=== PATIENT | female | born 1975 | race Caucasian/White ===

== ENCOUNTER → 2017-01-09 | Outpatient (CLI) | payer OTHER | LOC: WOUNDCARE 14:14 | PROVIDERS: ATTEND Surgery | DX: E11.622 Type 2 diabetes mellitus with other skin ulcer (principal); L97.212 Non-pressure chronic ulcer of right calf with fat layer exposed; I87.331 Chronic venous hypertension (idiopathic) with ulcer and inflammation of right lower extremity; D68.69 Other thrombophilia; T65.222A Toxic effect of tobacco cigarettes, intentional self-harm, initial encounter | CPT/HCPCS: 11042; 87070; 87075; 87077; 87205 ==

== ENCOUNTER → 2017-01-09 | Outpatient (CLI) | payer SELFPAY ==
[2017-01-11 07:47] LABS: HOMOCYSTEINE 12.5 umol/L (<=10.3)
== END ==
LOC: LAB 15:29
PROVIDERS: ATTEND Surgery
DX: L97.212 Non-pressure chronic ulcer of right calf with fat layer exposed (principal); I87.331 Chronic venous hypertension (idiopathic) with ulcer and inflammation of right lower extremity; E11.622 Type 2 diabetes mellitus with other skin ulcer; F17.210 Nicotine dependence, cigarettes, uncomplicated
CPT/HCPCS: 36415; 81240; 83090; 85240; 85307; 85610; 85705; 85730; 86146; 86147

== ENCOUNTER → 2017-01-15 | Outpatient (CLI) | payer SELFPAY | LOC: WOUNDCARE 12:54 | PROVIDERS: ATTEND Surgery | DX: E11.622 Type 2 diabetes mellitus with other skin ulcer (principal); L97.212 Non-pressure chronic ulcer of right calf with fat layer exposed; I87.331 Chronic venous hypertension (idiopathic) with ulcer and inflammation of right lower extremity; D68.69 Other thrombophilia; T65.222A Toxic effect of tobacco cigarettes, intentional self-harm, initial encounter | CPT/HCPCS: 99212 ==

== ENCOUNTER → 2017-01-23 | Outpatient (CLI) | payer SELFPAY | LOC: WOUNDCARE 14:06 | PROVIDERS: ATTEND Surgery | DX: E11.622 Type 2 diabetes mellitus with other skin ulcer (principal); I70.232 Atherosclerosis of native arteries of right leg with ulceration of calf; I87.331 Chronic venous hypertension (idiopathic) with ulcer and inflammation of right lower extremity; L97.212 Non-pressure chronic ulcer of right calf with fat layer exposed; D68.52 Prothrombin gene mutation; T65.222A Toxic effect of tobacco cigarettes, intentional self-harm, initial encounter | CPT/HCPCS: 11042 ==

== ENCOUNTER → 2017-01-30 | Outpatient (CLI) | payer SELFPAY | LOC: WOUNDCARE 14:01 | PROVIDERS: ATTEND Surgery | DX: L95.9 Vasculitis limited to the skin, unspecified (principal); L97.212 Non-pressure chronic ulcer of right calf with fat layer exposed; E11.622 Type 2 diabetes mellitus with other skin ulcer; D68.52 Prothrombin gene mutation | CPT/HCPCS: 11042 ==

== ENCOUNTER → 2017-02-06 | Outpatient (CLI) | payer SELFPAY | LOC: WOUNDCARE 13:57 | PROVIDERS: ATTEND Surgery | DX: E11.622 Type 2 diabetes mellitus with other skin ulcer (principal); L97.212 Non-pressure chronic ulcer of right calf with fat layer exposed; L95.9 Vasculitis limited to the skin, unspecified; D68.52 Prothrombin gene mutation | CPT/HCPCS: 11042 ==

== ENCOUNTER 2017-02-12 08:59 | Outpatient (RCR) | payer OTHER | END 2017-05-13 | disposition home or self-care (01) | LOC: ONC 08:59 | PROVIDERS: ATTEND Internal Medicine Hematology & Oncology | DX: D68.59 Other primary thrombophilia (principal); E11.9 Type 2 diabetes mellitus without complications; E66.01 Morbid (severe) obesity due to excess calories; Z68.41 Body mass index [BMI] 40.0-44.9, adult; Z79.82 Long term (current) use of aspirin; Z79.84 Long term (current) use of oral hypoglycemic drugs; Z79.899 Other long term (current) drug therapy | CPT/HCPCS: 99214 ==

== ENCOUNTER → 2017-02-12 | Outpatient (CLI) | payer SELFPAY | LOC: LAB 14:10 | PROVIDERS: ATTEND Surgery | DX: L95.9 Vasculitis limited to the skin, unspecified (principal); L97.212 Non-pressure chronic ulcer of right calf with fat layer exposed; E11.622 Type 2 diabetes mellitus with other skin ulcer; D68.52 Prothrombin gene mutation | CPT/HCPCS: 36415; 80074; 85652; 86141; 86430 ==

== ENCOUNTER → 2017-02-13 | Outpatient (CLI) | payer SELFPAY | LOC: WOUNDCARE 13:59 | PROVIDERS: ATTEND Surgery | DX: L95.9 Vasculitis limited to the skin, unspecified (principal); L97.212 Non-pressure chronic ulcer of right calf with fat layer exposed; E11.622 Type 2 diabetes mellitus with other skin ulcer; D68.52 Prothrombin gene mutation | CPT/HCPCS: 11042 ==

== ENCOUNTER → 2017-02-20 | Outpatient (CLI) | payer SELFPAY | LOC: WOUNDCARE 14:08 | PROVIDERS: ATTEND Surgery | DX: E11.622 Type 2 diabetes mellitus with other skin ulcer (principal); L97.212 Non-pressure chronic ulcer of right calf with fat layer exposed; L95.9 Vasculitis limited to the skin, unspecified; D68.52 Prothrombin gene mutation | CPT/HCPCS: 11042 ==

== ENCOUNTER → 2017-02-27 | Outpatient (CLI) | payer SELFPAY | LOC: WOUNDCARE 12:07 | PROVIDERS: ATTEND Surgery | DX: E11.622 Type 2 diabetes mellitus with other skin ulcer (principal); L97.212 Non-pressure chronic ulcer of right calf with fat layer exposed; L95.9 Vasculitis limited to the skin, unspecified; D68.52 Prothrombin gene mutation | CPT/HCPCS: 11042; 87070; 87075; 87186; 87205 ==

== ENCOUNTER → 2017-02-27 | Outpatient (CLI) | payer SELFPAY ==
[2017-02-28 07:19] LABS: HEPATITIS C ANTIBODY C Non-Reactive (Non-Reactive)
== END ==
LOC: LAB 13:25
PROVIDERS: ATTEND Surgery
DX: L95.9 Vasculitis limited to the skin, unspecified (principal); L97.212 Non-pressure chronic ulcer of right calf with fat layer exposed; E11.622 Type 2 diabetes mellitus with other skin ulcer; D68.52 Prothrombin gene mutation
CPT/HCPCS: 36415; 80074; 85652; 86038; 86141; 86430

== ENCOUNTER → 2017-03-06 | Outpatient (CLI) | payer OTHER | LOC: WOUNDCARE 09:37 | PROVIDERS: ATTEND Surgery | DX: E11.622 Type 2 diabetes mellitus with other skin ulcer (principal); L97.212 Non-pressure chronic ulcer of right calf with fat layer exposed; L95.9 Vasculitis limited to the skin, unspecified; D68.52 Prothrombin gene mutation | CPT/HCPCS: 11042 ==

== ENCOUNTER → 2017-03-13 | Outpatient (CLI) | payer SELFPAY | LOC: WOUNDCARE 09:34 | PROVIDERS: ATTEND Internal Medicine | DX: E11.622 Type 2 diabetes mellitus with other skin ulcer (principal); I87.311 Chronic venous hypertension (idiopathic) with ulcer of right lower extremity; L97.212 Non-pressure chronic ulcer of right calf with fat layer exposed; L95.9 Vasculitis limited to the skin, unspecified; D68.52 Prothrombin gene mutation | CPT/HCPCS: 11042 ==

== ENCOUNTER → 2017-03-18 | Outpatient (CLI) | payer SELFPAY | LOC: WOUNDCARE 09:41 | PROVIDERS: ATTEND Surgery | DX: L95.9 Vasculitis limited to the skin, unspecified (principal); L97.212 Non-pressure chronic ulcer of right calf with fat layer exposed; I87.311 Chronic venous hypertension (idiopathic) with ulcer of right lower extremity; E11.622 Type 2 diabetes mellitus with other skin ulcer; D68.52 Prothrombin gene mutation | CPT/HCPCS: 11042 ==

== ENCOUNTER → 2017-03-27 | Outpatient (CLI) | payer SELFPAY | LOC: WOUNDCARE 12:40 | PROVIDERS: ATTEND Surgery | DX: E11.622 Type 2 diabetes mellitus with other skin ulcer (principal); I87.311 Chronic venous hypertension (idiopathic) with ulcer of right lower extremity; L97.212 Non-pressure chronic ulcer of right calf with fat layer exposed; L95.9 Vasculitis limited to the skin, unspecified; D68.52 Prothrombin gene mutation | CPT/HCPCS: 11042; 87070; 87075; 87205 ==

== ENCOUNTER → 2017-04-03 | Outpatient (CLI) | payer SELFPAY | LOC: WOUNDCARE 09:18 | PROVIDERS: ATTEND Surgery | DX: E11.622 Type 2 diabetes mellitus with other skin ulcer (principal); L97.212 Non-pressure chronic ulcer of right calf with fat layer exposed; L95.9 Vasculitis limited to the skin, unspecified; I87.311 Chronic venous hypertension (idiopathic) with ulcer of right lower extremity; D68.52 Prothrombin gene mutation | CPT/HCPCS: 11042 ==

== ENCOUNTER → 2017-04-10 | Outpatient (CLI) | payer SELFPAY | LOC: WOUNDCARE 08:30 | PROVIDERS: ATTEND Surgery | DX: L95.9 Vasculitis limited to the skin, unspecified (principal); E11.622 Type 2 diabetes mellitus with other skin ulcer; I87.311 Chronic venous hypertension (idiopathic) with ulcer of right lower extremity; L97.212 Non-pressure chronic ulcer of right calf with fat layer exposed; D68.52 Prothrombin gene mutation | CPT/HCPCS: 11042 ==

== ENCOUNTER 2017-04-15 09:24 | Outpatient (RCR) | payer OTHER | END 2017-04-15 12:00 | disposition home or self-care (01) | LOC: WOUNDCARE 09:24 | PROVIDERS: ATTEND Surgery | DX: E11.622 Type 2 diabetes mellitus with other skin ulcer (principal); L97.212 Non-pressure chronic ulcer of right calf with fat layer exposed | CPT/HCPCS: 82962; 99183; 99211 ==

== ENCOUNTER → 2017-04-17 | Outpatient (CLI) | payer OTHER | LOC: WOUNDCARE 12:49 | PROVIDERS: ATTEND Surgery | DX: E11.622 Type 2 diabetes mellitus with other skin ulcer (principal); L97.212 Non-pressure chronic ulcer of right calf with fat layer exposed; I87.311 Chronic venous hypertension (idiopathic) with ulcer of right lower extremity; L95.9 Vasculitis limited to the skin, unspecified; D68.52 Prothrombin gene mutation | CPT/HCPCS: 15271 ==

== ENCOUNTER → 2017-04-24 | Outpatient (CLI) | payer SELFPAY | LOC: WOUNDCARE 12:44 | PROVIDERS: ATTEND Surgery | DX: E11.622 Type 2 diabetes mellitus with other skin ulcer (principal); L97.212 Non-pressure chronic ulcer of right calf with fat layer exposed; I87.311 Chronic venous hypertension (idiopathic) with ulcer of right lower extremity; L95.9 Vasculitis limited to the skin, unspecified; D68.52 Prothrombin gene mutation | CPT/HCPCS: 15271 ==

== ENCOUNTER → 2017-05-01 | Outpatient (CLI) | payer SELFPAY | LOC: WOUNDCARE 12:47 | PROVIDERS: ATTEND Surgery | DX: E11.622 Type 2 diabetes mellitus with other skin ulcer (principal); L95.9 Vasculitis limited to the skin, unspecified; L97.212 Non-pressure chronic ulcer of right calf with fat layer exposed; I87.311 Chronic venous hypertension (idiopathic) with ulcer of right lower extremity; D68.52 Prothrombin gene mutation | CPT/HCPCS: 11042 ==

== ENCOUNTER → 2017-05-08 | Outpatient (CLI) | payer SELFPAY | LOC: WOUNDCARE 12:46 | PROVIDERS: ATTEND Surgery | DX: E11.622 Type 2 diabetes mellitus with other skin ulcer (principal); I87.311 Chronic venous hypertension (idiopathic) with ulcer of right lower extremity; L97.212 Non-pressure chronic ulcer of right calf with fat layer exposed; L95.9 Vasculitis limited to the skin, unspecified; D68.52 Prothrombin gene mutation | CPT/HCPCS: 11042 ==

== ENCOUNTER → 2017-05-15 | Outpatient (CLI) | payer OTHER | LOC: WOUNDCARE 12:48 | PROVIDERS: ATTEND Surgery | DX: E11.622 Type 2 diabetes mellitus with other skin ulcer (principal); I87.311 Chronic venous hypertension (idiopathic) with ulcer of right lower extremity; L97.212 Non-pressure chronic ulcer of right calf with fat layer exposed; L95.9 Vasculitis limited to the skin, unspecified; D68.52 Prothrombin gene mutation | CPT/HCPCS: 99213 ==

== ENCOUNTER → 2017-12-02 | Outpatient (CLI) | payer SELFPAY | LOC: WOUNDCARE 08:44 | PROVIDERS: ATTEND Surgery | DX: E11.622 Type 2 diabetes mellitus with other skin ulcer (principal); I87.331 Chronic venous hypertension (idiopathic) with ulcer and inflammation of right lower extremity; L97.212 Non-pressure chronic ulcer of right calf with fat layer exposed; L95.9 Vasculitis limited to the skin, unspecified | CPT/HCPCS: 11100; 88305 ==

== ENCOUNTER → 2017-12-09 | Outpatient (CLI) | payer OTHER | LOC: WOUNDCARE 08:26 | PROVIDERS: ATTEND Surgery | DX: L95.9 Vasculitis limited to the skin, unspecified (principal); E11.622 Type 2 diabetes mellitus with other skin ulcer; I87.331 Chronic venous hypertension (idiopathic) with ulcer and inflammation of right lower extremity; L97.212 Non-pressure chronic ulcer of right calf with fat layer exposed | CPT/HCPCS: 11042 ==

== ENCOUNTER → 2017-12-16 | Outpatient (CLI) | payer OTHER | LOC: WOUNDCARE 08:17 | PROVIDERS: ATTEND Surgery | DX: E11.622 Type 2 diabetes mellitus with other skin ulcer (principal); I87.331 Chronic venous hypertension (idiopathic) with ulcer and inflammation of right lower extremity; L97.212 Non-pressure chronic ulcer of right calf with fat layer exposed; L95.8 Other vasculitis limited to the skin | CPT/HCPCS: 11042 ==

== ENCOUNTER → 2017-12-23 | Outpatient (CLI) | payer OTHER | LOC: WOUNDCARE 08:17 | PROVIDERS: ATTEND Surgery | DX: E11.622 Type 2 diabetes mellitus with other skin ulcer (principal); I87.331 Chronic venous hypertension (idiopathic) with ulcer and inflammation of right lower extremity; L97.212 Non-pressure chronic ulcer of right calf with fat layer exposed; L95.8 Other vasculitis limited to the skin | CPT/HCPCS: 99212 ==

== ENCOUNTER → 2017-12-30 | Outpatient (CLI) | payer OTHER | LOC: WOUNDCARE 08:12 | PROVIDERS: ATTEND Surgery | DX: E11.622 Type 2 diabetes mellitus with other skin ulcer (principal); I87.331 Chronic venous hypertension (idiopathic) with ulcer and inflammation of right lower extremity; L97.212 Non-pressure chronic ulcer of right calf with fat layer exposed; L95.8 Other vasculitis limited to the skin | CPT/HCPCS: 11042; 87070; 87075; 87205 ==

== ENCOUNTER → 2018-01-08 | Outpatient (CLI) | payer OTHER | LOC: WOUNDCARE 09:03 | PROVIDERS: ATTEND Orthopaedic Surgery Hand Surgery | DX: E11.622 Type 2 diabetes mellitus with other skin ulcer (principal); L97.212 Non-pressure chronic ulcer of right calf with fat layer exposed; L95.8 Other vasculitis limited to the skin; I87.331 Chronic venous hypertension (idiopathic) with ulcer and inflammation of right lower extremity | CPT/HCPCS: 11042 ==

== ENCOUNTER → 2018-01-14 | Outpatient (CLI) | payer OTHER | LOC: WOUNDCARE 08:02 | PROVIDERS: ATTEND Nurse Practitioner | DX: E11.622 Type 2 diabetes mellitus with other skin ulcer (principal); I87.331 Chronic venous hypertension (idiopathic) with ulcer and inflammation of right lower extremity; L97.212 Non-pressure chronic ulcer of right calf with fat layer exposed; L95.8 Other vasculitis limited to the skin | CPT/HCPCS: 29580 ==

== ENCOUNTER → 2018-01-22 | Outpatient (CLI) | payer OTHER | LOC: WOUNDCARE 08:53 | PROVIDERS: ATTEND Orthopaedic Surgery Hand Surgery | DX: E11.622 Type 2 diabetes mellitus with other skin ulcer (principal); I87.331 Chronic venous hypertension (idiopathic) with ulcer and inflammation of right lower extremity; L97.212 Non-pressure chronic ulcer of right calf with fat layer exposed; L95.8 Other vasculitis limited to the skin | CPT/HCPCS: 11042 ==

== ENCOUNTER → 2018-01-29 | Outpatient (CLI) | payer OTHER | LOC: WOUNDCARE 12:54 | PROVIDERS: ATTEND Orthopaedic Surgery Hand Surgery | DX: E11.622 Type 2 diabetes mellitus with other skin ulcer (principal); I87.331 Chronic venous hypertension (idiopathic) with ulcer and inflammation of right lower extremity; L97.212 Non-pressure chronic ulcer of right calf with fat layer exposed; L95.8 Other vasculitis limited to the skin | CPT/HCPCS: 11042 ==

== ENCOUNTER → 2018-02-05 | Outpatient (CLI) | payer OTHER | LOC: WOUNDCARE 08:56 | PROVIDERS: ATTEND Orthopaedic Surgery Hand Surgery | DX: E11.622 Type 2 diabetes mellitus with other skin ulcer (principal); I87.331 Chronic venous hypertension (idiopathic) with ulcer and inflammation of right lower extremity; L97.212 Non-pressure chronic ulcer of right calf with fat layer exposed; L95.8 Other vasculitis limited to the skin | CPT/HCPCS: 11042 ==

== ENCOUNTER → 2018-02-12 | Outpatient (CLI) | payer OTHER | LOC: WOUNDCARE 08:59 | PROVIDERS: ATTEND Orthopaedic Surgery Hand Surgery | DX: E11.622 Type 2 diabetes mellitus with other skin ulcer (principal); I87.331 Chronic venous hypertension (idiopathic) with ulcer and inflammation of right lower extremity; L97.212 Non-pressure chronic ulcer of right calf with fat layer exposed; L95.8 Other vasculitis limited to the skin | CPT/HCPCS: 11042 ==

== ENCOUNTER → 2018-02-20 | Outpatient (CLI) | payer OTHER | LOC: WOUNDCARE 08:08 | PROVIDERS: ATTEND Nurse Practitioner | DX: E11.622 Type 2 diabetes mellitus with other skin ulcer (principal); I87.331 Chronic venous hypertension (idiopathic) with ulcer and inflammation of right lower extremity; L97.212 Non-pressure chronic ulcer of right calf with fat layer exposed; L95.8 Other vasculitis limited to the skin | CPT/HCPCS: 29581 ==

== ENCOUNTER → 2018-02-26 | Outpatient (CLI) | payer OTHER | LOC: WOUNDCARE 08:16 | PROVIDERS: ATTEND Surgery | DX: E11.622 Type 2 diabetes mellitus with other skin ulcer (principal); I87.331 Chronic venous hypertension (idiopathic) with ulcer and inflammation of right lower extremity; L97.212 Non-pressure chronic ulcer of right calf with fat layer exposed; L95.8 Other vasculitis limited to the skin | CPT/HCPCS: 29581 ==

== ENCOUNTER → 2018-03-03 | Outpatient (CLI) | payer OTHER | LOC: WOUNDCARE 08:19 | PROVIDERS: ATTEND Surgery | DX: E11.622 Type 2 diabetes mellitus with other skin ulcer (principal); I87.331 Chronic venous hypertension (idiopathic) with ulcer and inflammation of right lower extremity; L97.212 Non-pressure chronic ulcer of right calf with fat layer exposed; L95.8 Other vasculitis limited to the skin | CPT/HCPCS: 99212 ==

== ENCOUNTER → 2018-04-14 | Outpatient (CLI) | payer OTHER | LOC: WOUNDCARE 12:25 | PROVIDERS: ATTEND Surgery | DX: E11.622 Type 2 diabetes mellitus with other skin ulcer (principal); I87.331 Chronic venous hypertension (idiopathic) with ulcer and inflammation of right lower extremity; L97.212 Non-pressure chronic ulcer of right calf with fat layer exposed; L95.8 Other vasculitis limited to the skin; E66.01 Morbid (severe) obesity due to excess calories | CPT/HCPCS: 11042; 87070; 87205 ==

== ENCOUNTER → 2018-04-21 | Outpatient (CLI) | payer OTHER | LOC: WOUNDCARE 08:22 | PROVIDERS: ATTEND Surgery | DX: E11.622 Type 2 diabetes mellitus with other skin ulcer (principal); I87.331 Chronic venous hypertension (idiopathic) with ulcer and inflammation of right lower extremity; L97.212 Non-pressure chronic ulcer of right calf with fat layer exposed; L95.8 Other vasculitis limited to the skin; E66.01 Morbid (severe) obesity due to excess calories | CPT/HCPCS: 99212 ==

== ENCOUNTER → 2018-04-28 | Outpatient (CLI) | payer SELFPAY | LOC: WOUNDCARE 08:18 | PROVIDERS: ATTEND Surgery | DX: E11.622 Type 2 diabetes mellitus with other skin ulcer (principal); I87.331 Chronic venous hypertension (idiopathic) with ulcer and inflammation of right lower extremity; L97.212 Non-pressure chronic ulcer of right calf with fat layer exposed; L95.8 Other vasculitis limited to the skin; E66.01 Morbid (severe) obesity due to excess calories; Z68.42 Body mass index [BMI] 45.0-49.9, adult | CPT/HCPCS: 99213 ==

== ENCOUNTER → 2018-05-05 | Outpatient (CLI) | payer OTHER | LOC: WOUNDCARE 08:17 | PROVIDERS: ATTEND Surgery | DX: E11.622 Type 2 diabetes mellitus with other skin ulcer (principal); I87.332 Chronic venous hypertension (idiopathic) with ulcer and inflammation of left lower extremity; L97.212 Non-pressure chronic ulcer of right calf with fat layer exposed; L95.8 Other vasculitis limited to the skin; E66.01 Morbid (severe) obesity due to excess calories | CPT/HCPCS: 99213 ==

== ENCOUNTER → 2018-05-14 | Outpatient (CLI) | payer OTHER | LOC: WOUNDCARE 13:06 | PROVIDERS: ATTEND Surgery | DX: E11.622 Type 2 diabetes mellitus with other skin ulcer (principal); I87.332 Chronic venous hypertension (idiopathic) with ulcer and inflammation of left lower extremity; L97.212 Non-pressure chronic ulcer of right calf with fat layer exposed; L95.8 Other vasculitis limited to the skin; E66.01 Morbid (severe) obesity due to excess calories | CPT/HCPCS: 11042; 87070; 87077; 87205 ==

== ENCOUNTER → 2018-05-19 | Outpatient (CLI) | payer OTHER | LOC: WOUNDCARE 08:17 | PROVIDERS: ATTEND Surgery | DX: E11.622 Type 2 diabetes mellitus with other skin ulcer (principal); I87.332 Chronic venous hypertension (idiopathic) with ulcer and inflammation of left lower extremity; L97.212 Non-pressure chronic ulcer of right calf with fat layer exposed; E66.01 Morbid (severe) obesity due to excess calories | CPT/HCPCS: 11042 ==

== ENCOUNTER → 2018-05-26 | Outpatient (CLI) | payer OTHER | LOC: WOUNDCARE 08:18 | PROVIDERS: ATTEND Surgery | DX: E11.622 Type 2 diabetes mellitus with other skin ulcer (principal); I87.332 Chronic venous hypertension (idiopathic) with ulcer and inflammation of left lower extremity; L97.212 Non-pressure chronic ulcer of right calf with fat layer exposed; I89.0 Lymphedema, not elsewhere classified; E66.01 Morbid (severe) obesity due to excess calories | CPT/HCPCS: 11042 ==

== ENCOUNTER → 2018-06-02 | Outpatient (CLI) | payer OTHER | LOC: WOUNDCARE 08:15 | PROVIDERS: ATTEND Surgery | DX: E11.622 Type 2 diabetes mellitus with other skin ulcer (principal); I87.332 Chronic venous hypertension (idiopathic) with ulcer and inflammation of left lower extremity; L97.212 Non-pressure chronic ulcer of right calf with fat layer exposed; I89.0 Lymphedema, not elsewhere classified; E66.01 Morbid (severe) obesity due to excess calories | CPT/HCPCS: 11042 ==

== ENCOUNTER → 2018-06-04 | Outpatient (CLI) | payer OTHER | LOC: WOUNDCARE 08:21 | PROVIDERS: ATTEND Surgery | DX: E11.622 Type 2 diabetes mellitus with other skin ulcer (principal); I87.332 Chronic venous hypertension (idiopathic) with ulcer and inflammation of left lower extremity; L97.212 Non-pressure chronic ulcer of right calf with fat layer exposed; I89.0 Lymphedema, not elsewhere classified; E66.01 Morbid (severe) obesity due to excess calories | CPT/HCPCS: 29581 ==

== ENCOUNTER → 2018-06-09 | Outpatient (CLI) | payer OTHER | LOC: WOUNDCARE 08:14 | PROVIDERS: ATTEND Surgery | DX: E11.622 Type 2 diabetes mellitus with other skin ulcer (principal); I87.332 Chronic venous hypertension (idiopathic) with ulcer and inflammation of left lower extremity; L97.212 Non-pressure chronic ulcer of right calf with fat layer exposed; I89.0 Lymphedema, not elsewhere classified; E66.01 Morbid (severe) obesity due to excess calories | CPT/HCPCS: 11042 ==

== ENCOUNTER → 2018-06-16 | Outpatient (CLI) | payer OTHER | LOC: WOUNDCARE 08:18 | PROVIDERS: ATTEND Surgery | DX: E11.622 Type 2 diabetes mellitus with other skin ulcer (principal); I87.332 Chronic venous hypertension (idiopathic) with ulcer and inflammation of left lower extremity; L97.212 Non-pressure chronic ulcer of right calf with fat layer exposed; I89.0 Lymphedema, not elsewhere classified; E66.01 Morbid (severe) obesity due to excess calories | CPT/HCPCS: 11042 ==

== ENCOUNTER → 2018-06-18 | Outpatient (CLI) | payer OTHER | LOC: WOUNDCARE 12:47 | PROVIDERS: ATTEND Surgery | DX: E11.622 Type 2 diabetes mellitus with other skin ulcer (principal); I87.332 Chronic venous hypertension (idiopathic) with ulcer and inflammation of left lower extremity; L97.212 Non-pressure chronic ulcer of right calf with fat layer exposed; I89.0 Lymphedema, not elsewhere classified; E66.01 Morbid (severe) obesity due to excess calories ==

== ENCOUNTER → 2018-06-23 | Outpatient (CLI) | payer OTHER | LOC: WOUNDCARE 08:17 | PROVIDERS: ATTEND Surgery | DX: E11.622 Type 2 diabetes mellitus with other skin ulcer (principal); I87.332 Chronic venous hypertension (idiopathic) with ulcer and inflammation of left lower extremity; L97.212 Non-pressure chronic ulcer of right calf with fat layer exposed; E66.01 Morbid (severe) obesity due to excess calories | CPT/HCPCS: 11042 ==

== ENCOUNTER → 2018-07-02 | Outpatient (CLI) | payer OTHER | LOC: WOUNDCARE 12:49 | PROVIDERS: ATTEND Nurse Practitioner | DX: E11.622 Type 2 diabetes mellitus with other skin ulcer (principal); L97.212 Non-pressure chronic ulcer of right calf with fat layer exposed | CPT/HCPCS: 29581 ==

== ENCOUNTER → 2018-07-08 | Outpatient (CLI) | payer OTHER | LOC: WOUNDCARE 13:48 | PROVIDERS: ATTEND Surgery | DX: E11.622 Type 2 diabetes mellitus with other skin ulcer (principal); L97.212 Non-pressure chronic ulcer of right calf with fat layer exposed; I87.332 Chronic venous hypertension (idiopathic) with ulcer and inflammation of left lower extremity; E66.01 Morbid (severe) obesity due to excess calories | CPT/HCPCS: 99212 ==

== ENCOUNTER → 2020-07-20 | Outpatient (CLI) | payer OTHER ==
--- NOTE | 2020-07-20 11:11 | Diagnostic Imaging Report ---
PROCEDURE: Pelvic comp/transvaginal sonogram. TECHNIQUE: Complete transabdominal and transvaginal pelvic ultrasound was performed. In addition, limited pelvic Doppler was performed. INDICATION: Abnormal bleeding. FINDINGS: Uterus is anteverted measuring 8.6 x 4.8 x 4.3 cm. Endometrium is 8 mm in thickness. No myometrial mass is detected. There appear to be some calcifications along the endocervical canal. Right ovary was not visualized. Left ovary was also very difficult to visualize and measures approximately 3.1 cm in length. There is a 2.1 cm left ovarian cyst. No free fluid is detected. IMPRESSION: Compromised study due to patient body habitus. There is a small 2.1 cm left ovarian cyst. No other significant abnormality is detected. Dictated by: Dictated on workstation # [id number]
== END ==
LOC: RAD 09:51
PROVIDERS: ATTEND Nurse Practitioner Family
DX: N83.202 Unspecified ovarian cyst, left side (principal)
CPT/HCPCS: 76830; 76856

== ENCOUNTER 2020-09-06 05:51 | Outpatient (CLI) | payer OTHER ==
[~2020-09-06] VITALS: Ht 175.3 cm; Wt 141.8 kg
[2020-09-06] MEDS ORDERED: METF-399 PO (16:18)
[2020-09-06] MEDS ORDERED: MULT-141 PO (16:18)
[2020-09-06] MEDS ORDERED: LISI2.5T PO (16:18)
[2020-09-06] MEDS ORDERED: GEMF600T88 PO (16:18)
[2020-09-06] MEDS ORDERED: LEVO125C4 PO (16:18)
[2020-09-06] MEDS ORDERED: LINA5TAB PO (16:18)
[2020-09-06] MEDS ORDERED: ASPI-999 PO (16:18)
[2020-09-06] MEDS ORDERED: PIOG30TA38 PO (16:18)
[2020-09-06] MEDS ORDERED: UBID100C17 PO (16:18)
== END 2020-09-06 16:22 | disposition home or self-care (01) ==
LOC: PREOP 05:51
PROVIDERS: ATTEND Obstetrics & Gynecology
DX: Z01.818 Encounter for other preprocedural examination (principal)

== ENCOUNTER 2020-09-13 08:35 | Day surgery (SDC) | payer OTHER ==
[~2020-09-13] VITALS: Ht 175.3 cm; Wt 141.8 kg
[2020-09-13] VITALS (11 sets, daily range): BP systolic 112–134; BP diastolic 61–79
[~2020-09-13 08:35] MED LIST: ASPI-999 PO; GEMF600T88 PO; LEVO125C4 PO; LINA5TAB PO; LISI2.5T PO; METF-399 PO; MULT-141 PO; PIOG30TA38 PO; UBID100C17 PO
[2020-09-13] MEDS ORDERED: ceFAZolin 2 GM IV Premixed 50 ML IV ONE (09:00)
[2020-09-13 09:02] LABS: BILIRUBIN,URINE NEGATIVE (NEGATIVE); CLARITY,URINE CLEAR; COLOR,URINE YELLOW; GLUCOSE, URINE (UA) NEGATIVE (NEGATIVE); KETONES,URINE NEGATIVE (NEGATIVE); LEUKOCYTE ESTERASE ,URINE NEGATIVE (NEGATIVE); NITRITE,URINE NEGATIVE (NEGATIVE); PROTEIN,URINE NEGATIVE (NEGATIVE)
[2020-09-13 09:13] LABS: BACTERIA,URINE NEGATIVE /HPF
[2020-09-13] MEDS ORDERED: ONDANSETRON 4 MG/2 ML (SDV) Z0FRAN ONE (09:16)
[2020-09-13] MEDS ORDERED: fentaNYL INJ 100 MCG/2 ML AMP ONE ×2 (09:16→11:00)
[2020-09-13] MEDS ORDERED: SEVOFLURANE (ULTANE) 15 ML INHAL SOLN ONE ×2 (09:16→11:01)
[2020-09-13] MEDS ORDERED: LIDOCAINE PF 2% 5 ML (XYLOCAINE) VIAL ONE (09:16)
[2020-09-13] MEDS ORDERED: proPOfol 200 MG/20 ML (DIPRIVAN) VIAL IV ONE ×2 (09:16→11:00)
[2020-09-13] MEDS ORDERED: MIDAZOLAM 2 MG/2 ML (VERSED) VIAL ONE (09:16)
[2020-09-13] MEDS ORDERED: BUPIVACAINE 0.25% 30 ML (SENSORCAINE) VIAL ONE (09:25)
[2020-09-13] MEDS: LACTATED RINGERS 1,000 ML IV PRN ×2 (09:28→10:48)
[2020-09-13 09:43] LABS: BASOPHILS # (AUTO) 0.1 10^3/uL (0.0-0.1); BASOPHILS % (AUTO) 1 % (0-10); EOSINOPHILS # (AUTO) 0.4 10^3/uL (0.0-0.3); EOSINOPHILS % (AUTO) 7 % (0-10); HEMATOCRIT 34 % (35-52); HEMOGLOBIN 10.5 g/dL (11.5-16.0); LYMPHOCYTES # (AUTO) 1.7 10^3/uL (1.0-4.0); LYMPHOCYTES % (AUTO) 26 % (12-44); MEAN CORPUSCULAR HEMOGLOBIN 26 pg (25-34); MEAN CORPUSCULAR HGB CONC 31 g/dL (32-36); MEAN CORPUSCULAR VOLUME 85 fL (80-99); MEAN PLATELET VOLUME 9.6 fL (9.0-12.2); MONOCYTES # (AUTO) 0.6 10^3/uL (0.0-1.0); MONOCYTES % (AUTO) 10 % (0-12); NEUTROPHILS # (AUTO) 3.7 10^3/uL (1.8-7.8); NEUTROPHILS % (AUTO) 56 % (42-75); PLATELET COUNT 305 10^3/uL (130-400); WHITE BLOOD COUNT 6.6 10^3/uL (4.3-11.0)
--- NOTE | 2020-09-13 10:29 | Progress Note-Pre Operative ---
Pre-Operative Progress Note H&P Reviewed The H&P was reviewed, patient examined and no changes noted. Date Seen by Provider: Sep 13, 2020 Time Seen by Provider: 10:00 Date H&P Reviewed: Sep 13, 2020 Time H&P Reviewed: 10:00 Pre-Operative Diagnosis: abnormal uterine bleeding, thickened endometrium, ovarian cyst,thrombophili CANDICE ANDERSEN DO Sep 13, 2020 10:29
[2020-09-13] MEDS ORDERED: ROCURONIUM 10 MG/ML 5 ML SYRINGE IV ONE (11:04)
[2020-09-13] MEDS ORDERED: GLYCOPYRROLATE 0.2 MG/ML (ROBINUL) 2 ML VIAL ONE (11:06)
[2020-09-13] MEDS ORDERED: NEOSTIGMINE 3 MG/3 ML VIAL ONE (11:06)
[2020-09-13] MEDS ORDERED: KETOROLAC 30 MG/ML VIAL ONE (11:22)
--- NOTE | 2020-09-13 11:31 | Operative Report ---
Operative Report Date of Procedure/Surgery Sep 13, 2020 Surgeon (s) CANDICE ANDERSEN DO Paid Search Specialist (s): NA Post-Operative Diagnosis same Procedure Performed hysteroscopy, dilatioon and curettage Ashley endometrial ablaition diagnostic laparoscopy Description of Procedure Anesthesia Type: General Estimated blood loss (mL): minimal Specimen(s) collected/removed proliferative endometrial tissue possible polypoid Description of the Procedure With informed consent the patient was taken to the operating room where general anesthesia was found to be adequate. She was prepped and draped in the usual sterile fashion in the dorsolithotomy position. the bladder was drained of panchito ar, yellow urine with a straight catheter. A speculum was then placed in the vagina and the cervix was grasped with a tenaculum. The cervix was then gently dilated. The hysteroscope was done and there was proliferative, polypoid tissue noted. I removed the hysteroscope and did a curettage removing the polyp and this was all sent for pathology. I then sounded the uterus and placed the Ashley device and performed the ablation after the compliance test was passed. the device was enabled and the ablation cycle was initiated for 120 seconds. Instruments were removed and the patient was repositioned for laparoscopy. due to previous ovarian cyst a diagnostic laparoscope was done. the umbilicus was injected with 0.25% Marcaine and a 5 mm skin incision was made. the scope was inserted under direct visualization with the optiview. Intraabdominal placement was confirmed. I then insufflated the abdomen to a maximum pressure of 15 mmHg with warmed CO2. A second 5 mm skin incision was placed in the left lower quadrant, lateral to the rectus muscles and avoiding the inferior epigastric muscles. A survey of the pelvis revealed no abnormal pathology. there was a small functional cyst. But the previous large cyst was not present and the tubes appeared normal. The instruments were removed and the skin incisions were closed with Surgifix. The patient awakened and taken to recovery. She was in stable condition. Instrument and sponge counts were correct times two. Findings of the Procedure normal uterus, tubes, ovaries proliferative endometrium Allergies and Home Medications Allergies Coded Allergies: No Known Drug Allergies (Unverified , 09/06/20) Home Medications Acetaminophen 500 Mg Tablet, 500 MG PO Q8H Prescribed by: CANDICE ANDERSEN on 09/13/20 6919 Aspirin 81 Mg Tab.chew, 81 MG PO DAILY, (Reported) Last Action: Reviewed Gemfibrozil 600 Mg Tablet, 600 MG PO DAILY, (Reported) Last Action: Reviewed Ibuprofen 600 Mg Tablet, 600 MG PO Q6H Prescribed by: CANDICE ANDERSEN on 09/13/20 113 Levothyroxine Sodium 125 Mcg Capsule, 125 MCG PO DAILY, (Reported) Last Action: Reviewed Linagliptin 5 Mg Tablet, 5 MG PO DAILY, (Reported) Last Action: Reviewed Lisinopril 2.5 Mg Tablet, 2.5 MG PO DAILY, (Reported) Last Action: Reviewed Metformin HCl 1,000 Mg Tablet, 1,000 MG PO BID, (Reported) Last Action: Reviewed Multivit with Calcium,Iron,Min 1 Each Tablet, 1 EACH PO DAILY, (Reported) Last Action: Reviewed Oxycodone HCl 5 Mg Tablet, 5 MG PO Q4H Prescribed by: CANDICE ANDERSEN on 09/13/20 1135 Pioglitazone HCl 30 Mg Tablet, 30 MG PO DAILY, (Reported) Last Action: Reviewed Ubidecarenone 100 Mg Capsule, 100 MG PO DAILY, (Reported) Last Action: Reviewed Patient Home Medication List Home Medication List Reviewed: Yes CANDICE ANDERSEN DO Sep 13, 2020 11:31
[2020-09-13] MEDS ORDERED: IBUP-1773 PO (11:35)
[2020-09-13] MEDS ORDERED: ACET-93 PO (11:35)
[2020-09-13] MEDS ORDERED: OXYC5TAB PO (11:35)
--- NOTE | 2020-09-13 11:37 | Discharge Inst-Simple/Standard ---
Discharge Inst-Standard Reconcile Patient Problems Problems Reviewed?: Yes Discharge Medications New, Converted or Re-Newed RX: Transmitted to Pharmacy Patient Instructions/Follow Up Plan of Care/Instructions/FU: expect some vaginal discharge, or spotting/light bleeding for 2 weeks. There may be an increase about 10-14 days after surgery Call for fever, excessive pain bleeding soaking > 1 pad per hour problems with urination or constipation Activity as Tolerated: Yes Discharge Diet: No Restrictions Return to The Hospital For: see above Planned Outpatient Orders/Ref. Moderna Covid Vaccine if she desires CANDICE ANDERSEN DO Sep 13, 2020 11:37
--- NOTE | 2020-09-13 11:41 | Anesthesia-General Post-Op ---
General Patient Condition Mental Status/LOC: Same as Preop Cardiovascular: Satisfactory Nausea/Vomiting: Absent Respiratory: Satisfactory Pain: Controlled Complications: Absent Post Op Complications Complications None Follow Up Care/Instructions Patient Instructions None needed. Anesthesia/Patient Condition Patient Condition Patient is doing well, no complaints, stable vital signs, no apparent adverse anesthesia problems. No complications reported per nursing. D/C home per [facility] Criteria: Yes SHAUN HODGSON CRNA Sep 13, 2020 11:41
[2020-09-13] MEDS ORDERED: ONDANSETRON 4 MG/2 ML (SDV) Z0FRAN IVP PRN (11:45)
[2020-09-13] MEDS ORDERED: HYDROmorphone 2 MG/ML VIAL (DILAUDID) IV ONE (11:45)
== END 2020-09-13 14:25 | disposition home or self-care (01) ==
LOC: SDC 08:35
PROVIDERS: ATTEND Obstetrics & Gynecology
DX: N93.8 Other specified abnormal uterine and vaginal bleeding (principal); N85.8 Other specified noninflammatory disorders of uterus; E11.9 Type 2 diabetes mellitus without complications; E66.01 Morbid (severe) obesity due to excess calories; F17.210 Nicotine dependence, cigarettes, uncomplicated; E07.9 Disorder of thyroid, unspecified; Z79.82 Long term (current) use of aspirin; Z79.899 Other long term (current) drug therapy; Z79.84 Long term (current) use of oral hypoglycemic drugs; Z79.890 Hormone replacement therapy; Z68.42 Body mass index [BMI] 45.0-49.9, adult; Z79.1 Long term (current) use of non-steroidal anti-inflammatories (NSAID); Z79.891 Long term (current) use of opiate analgesic
CPT/HCPCS: 36415; 81000; 82947; 84703; 85025; 87081; 88305

== ENCOUNTER → 2021-05-09 | Outpatient (CLI) | payer OTHER ==
[~2021-05-09] MED LIST changes: +ACET-93 PO; +IBUP-1773 PO; -LISI2.5T PO; +LISI2.5T13 PO; +OXYC5TAB PO
--- NOTE | 2021-05-09 12:02 | Diagnostic Imaging Report ---
PROCEDURE: Pelvic comp/transvaginal sonogram. TECHNIQUE: Complete transabdominal and transvaginal pelvic ultrasound was performed. In addition, limited pelvic Doppler was performed. INDICATION: Abnormal uterine bleeding. Patient had endometrial ablation in August 2020. Uterus is retroverted measuring 8.5 x 4.3 x 5.2 cm. Endometrium is approximately 11 mm in thickness. No myometrial mass is identified. Right ovary measures 7.1 x 4.7 x 4.1 cm and contains a septated cystic mass measuring 5.4 x 3.4 x 3.5 cm. There is blood flow to the right ovary. Left ovary measures 3.1 x 2.3 x 3.1 cm. Left ovary contains approximately 16 mm cyst. There is blood flow to left ovary. There is a small amount of free fluid in the posterior cul-de-sac. IMPRESSION: 1. Septated cystic mass right ovary. This was not present on prior ultrasound from 07/20/2020. Followup in 6-8 weeks is recommended to confirm clearing. No other significant abnormality is seen. Dictated by: Dictated on workstation # [id number]
== END ==
LOC: RAD 10:00
PROVIDERS: ATTEND Obstetrics & Gynecology
DX: N83.201 Unspecified ovarian cyst, right side (principal)
CPT/HCPCS: 76830; 76856

== ENCOUNTER → 2021-07-06 | Outpatient (CLI) | payer OTHER ==
--- NOTE | 2021-07-06 16:09 | Diagnostic Imaging Report ---
PROCEDURE: US non-OB pelvis comp/trans. TECHNIQUE: Multiple realtime grayscale images were obtained of the pelvis in various projections, endovaginally. Transabdominal imaging was also performed. INDICATION: Complex cyst of the right ovary. COMPARISON: 05/09/2021. FINDINGS: The uterus is normal in size and is retroflexed. The endometrium is normal in thickness measuring 3 mm. There is a small amount of endometrial fluid. No uterine masses are seen. The right ovary measures 2.3 x 1.2 x 1.0 cm in size and is only seen transabdominally. The left ovary measures 2.4 x 1.5 x 1.7 cm in size. There does appear to be blood flow at the right ovary. The left ovary blood flow is not well seen due to position and body habitus. No ovarian mass or fluid collection is identified on this exam. No free fluid is seen. IMPRESSION: 1. No significant ovarian mass or fluid collection is seen. Blood flow is seen at the right ovary. 2. Small amount of endometrial fluid. No uterine mass is seen. Dictated by: Dictated on workstation # [id number]
== END ==
LOC: RAD 12:00
PROVIDERS: ATTEND Obstetrics & Gynecology
DX: N83.291 Other ovarian cyst, right side (principal)
CPT/HCPCS: 76830; 76856

== ENCOUNTER → 2021-10-20 | Outpatient (CLI) | payer OTHER ==
--- NOTE | 2021-10-23 13:21 | Diagnostic Imaging Report ---
Indication: Routine screening. Comparison is made with prior mammogram 02/11/2020. 2-D and 3-D bilateral screening mammography was performed with CAD. CAD is utilized. The current study was also evaluated with a Computer Aided Detection (CAD) system. Scattered fibroglandular densities are identified bilaterally. The parenchymal pattern is stable. No mass or malignant-appearing microcalcifications are seen. Axillae are unremarkable. IMPRESSION: BI-RADS Category 1 No mammographic features suspicious for malignancy are identified. ACR BI-RADS Category 1: Negative. Result letter will be mailed to the patient. Note: At least 10% of breast cancer is not imaged by mammography. Dictated by: Dictated on workstation # [id number]
== END ==
LOC: RAD 14:30
PROVIDERS: ATTEND Obstetrics & Gynecology
DX: Z12.31 Encounter for screening mammogram for malignant neoplasm of breast (principal)
CPT/HCPCS: 77063; 77067

== ENCOUNTER → 2022-05-01 | Outpatient (CLI) | payer OTHER ==
--- NOTE | 2022-05-01 14:20 | Diagnostic Imaging Report ---
INDICATION: Left leg mass. FINDINGS: Sonographic interrogation of the area of palpable abnormality in the left lower extremity was performed. There appears to be some edema in the subcutaneous tissues. No discrete mass or fluid collection is identified. IMPRESSION: Subcutaneous edema. No other abnormality is detected. Dictated on workstation # [id number]
== END ==
LOC: RAD 12:18
PROVIDERS: ATTEND Internal Medicine
DX: R60.9 Edema, unspecified (principal)
CPT/HCPCS: 76881